=== PATIENT | female | born 1985 ===

== ENCOUNTER → 2020-11-22 07:48 | Outpatient (CLI) | payer OTHER, SELFPAY ==
[2020-11-22 08:38] LABS: COVID19 -Nasal RAPID Negative (Negative)
== END ==
PROVIDERS: Visit Provider Physician Assistant
DX: J02.9 Acute pharyngitis, unspecified (principal); R09.81 Nasal congestion; Z20.822 Contact with and (suspected) exposure to COVID-19
CPT/HCPCS: 87635

== ENCOUNTER → 2020-11-24 14:36 | Outpatient (CLI) | payer OTHER, SELFPAY ==
[2020-11-24 16:43] LABS: COVID19 -Nasal RAPID Negative (Negative)
== END ==
PROVIDERS: Visit Provider Nurse Practitioner
DX: Z20.822 Contact with and (suspected) exposure to COVID-19 (principal); R05 Cough
CPT/HCPCS: 87635